=== PATIENT | female | born 1970 | race Hispanic/Latino ===

== ENCOUNTER 2025-05-19 14:43 | Emergency (ER) | payer BC ==
[~2025-05-19] VITALS: Ht 172.7 cm; Wt 84.8 kg
[2025-05-19] MEDS: BACLOFEN 10 MG TABLET PO ONE (16:33)
[2025-05-19] MEDS: HYDROcodone/APAP 5/325 1 TAB TABLET PO ONE (16:34)
--- NOTE | 2025-05-19 16:44 | ERN ---
General Chief Complaint: Neck Pain Stated Complaint: BILATERAL NECK PAIN Time Seen by MD: 14:30 Time Seen by Midlevel: 17:00 History of Present Illness Initial Comments A 54-year-old male presents to the emergency department with a chief complaint of severe neck pain and inability to rotate the head laterally. The pain is described as excruciating, throbbing, and localized to the cervical region, with onset three days prior to presentation and marked worsening over the past 24 hours. He reports associated dysphagia, with difficulty swallowing, but denies fever, chills, dizziness, or constitutional symptoms. The pain is aggravated by any attempt at movement, including lying supine, and is refractory to positional changes. He denies any history of trauma, recent infection. He does not report gait instability, sensory loss, or urinary symptoms. Timing/Duration: constant Modifying Factors: worsens with movement (Neck pain worsens with any movement) Associated Symptoms: denies symptoms Allergies: Coded Allergies: No Known Allergies (Unverified Allergy, Unknown, 05/19/25) Past Medical History Past Medical History: Hypertension Past Surgical History: None Constitutional: (-) chills, (-) diaphoresis, (-) fever, (-) malaise, (-) weakness, (-) other documentation EENTM: (+) throat pain Respiratory: (-) cough, (-) orthopnea, (-) short of breath, (-) stridor, (-) wheezing, (-) other documentation Cardiovascular: (-) chest pain, (-) edema, (-) palpitations, (-) syncope, (-) dyspnea on exertion, (-) other documentation Gastrointestinal/Abdominal: (-) nausea, (-) vomiting, (-) diarrhea, (-) abdominal pain, (-) abdominal distention, (-) constipation, (-) rectal bleeding, (-) dark stool/melena, (-) other documentation Musculoskeletal: (+) Neck pain (Severe neck pain with restricted movement in all directions) Skin: (-) laceration, (-) contusion, (-) abrasion, (-) abscess, (-) rash, (-) change in color, (-) change in hair, (-) change in nails, (-) diaphoresis, (-) dryness, (-) other documentation Neuro: (-) altered mental status, (-) headache, (-) syncope, (-) paralysis, (-) numbness, (-) seizure, (-) pre-existing deficit, (-) tremors, (-) weakness, (-) dizziness, (-) slurred speech, (-) vertigo, (-) other documentation Psych: (-) depression, (-) suicidal ideation, (-) anxiety, (-) emotional problems, (-) auditory hallucinations, (-) visual hallucinations Hematologic/Lymphatic: (-) anemia, (-) blood clots, (-) easy bleeding, (-) easy bruising, (-) swollen glands, (-) other documentation Physical Exam General Appearance: (+) moderate distress Orientation: (+) alert, (+) oriented x 3 Head/Face Trauma: No Ear, Nose, Throat: (+) hearing grossly normal, (+) normal ENT inspection Neck: (+) tender (Tenderness that is more pronounced in the anterior pillars of sternocleidomastoid and in the nape of neck), (+) limited range of motion (Restricted range of motion in all directions) Respiratory: (+) chest non-tender, (+) lungs clear Heart: (+) regular, (+) no gallop Vascular: (+) no edema Gastrointestinal: (+) soft, (+) non-tender Results Laboratory and Microbiology Labs Reviewed?: Yes MDM MDM: The patient is a 54-year-old male with a history of hypertension who presents to the emergency department with nontraumatic neck pain onset a week ago. Patient reports he thinks he slept wrong with the causing to have the pain. Reports pain is worse with movement. Denies any numbness, denies any fevers or any associated symptoms. Patient was reassessed. At this time patient reports he feels much better than when he 1st arrived. Reports he has more movement to his neck. On physical exam patient is seen no acute distress, neurologically intact. We will discharged to follow up with PCP. Differential diagnosis: Cervical strain, muscle spasm, musculoskeletal pain. Rationale: Tests considered and ordered secondary to shared decision making include: labs, ECG and radiology Previous outside records reviewed: Old ER visits. Risk of complication and/or morbidity or mortality of patient management: None Medications-Per medication reconciliation Need for hospitalization: Patient does not meet criteria for hospitalization. Need for emergency major/minor surgery: No ED Course Orders Procedure Category Date Status Time Ketorolac PHA 05/19/25 Complete Tromethamine 30mg/Ml 16:30 Methylprednisolone PHA 05/19/25 Complete Succ 125mg (Solu-Medr 16:30 Baclofen (Baclofen) PHA 05/19/25 Complete 16:30 Hydrocodone/Apap PHA 05/19/25 Complete 5/325 (Cavalier 5/325mg) 16:30 Current Medications Medications (Trade) Dose Ordered Sig/Soniya Route PRN Reason Start Time Stop Time Status Last Admin Dose Admin Acetaminophen/ Hydrocodone Bitart (NORco 5/325MG) 1 tab ONCE ONCE PO 05/19/25 16:30 05/19/25 16:31 DC 05/19/25 16:34 Baclofen (Baclofen) 10 mg ONCE ONCE PO 05/19/25 16:30 05/19/25 16:31 DC 05/19/25 16:33 Ketorolac Tromethamine (toRADol) 30 mg ONCE ONCE IVP 05/19/25 16:30 05/19/25 16:31 DC 05/19/25 16:34 Methylprednisolone Sodium Succinate (Solu-medROL 125MG) 120 mg ONCE ONCE IVP 05/19/25 16:30 05/19/25 16:31 DC 05/19/25 16:34 Vital Signs Date Time Temp Pulse Resp B/P (MAP) Pulse Ox O2 Delivery O2 Flow Rate FiO2 05/19/25 15:09 98.1 75 16 145/75 99 Room Air* 0 21 05/19/25 14:45 98.8 78 16 148/79 99 Room Air 0 DX & DISP Disposition: Discharge Departure Impression: Primary Impression: Cervical strain Condition: Stable Scripts Cyclobenzaprine HCl (Flexeril) 10 Mg Tab 10 MG PO TID for muscle sstiffness, #14 TAB 0 Refills Prov: FRANKY BUSBY [employer] AND [employer] 05/19/25 Ibuprofen (Ibuprofen) 600 Mg Tablet 600 MG PO Q6H PRN for PAIN, #15 TAB Prov: FRANKY BUSBY [employer] AND [employer] 05/19/25 Additional Instructions: Please follow up with the primary doctor in 1-2 days. If anything worsens please return to ER. FOLLOW-UP WITH PRIMARY CARE PROVIDER IN 1 TO 2 DAYS. TAKE MEDICATIONS D IRECTED HERE IN THE EMERGENCY ROOM. OKAY TO CONTINUE HOME MEDICATIONS UNLESS OTHERWISE DISCUSSED DURING YOUR VISIT IN THE EMERGENCY ROOM TODAY. RETURN TO YOUR NEAREST EMERGENCY ROOM IF SYMPTOMS WORSEN OR IF THERE IS NO IMPROVEMENT. CALL 911 IF YOU NEED IMMEDIATE ASSISTANCE. TAKE TYLENOL [id number] NEEDED AND IF NO CONTRAINDICATIONS ARE PRESENT. INCREASE ORAL HYDRATION. A WOUND CULTURE OR URINE CULTURE WAS ORDERED HERE IN THE EMERGENCY ROOM DEPARTMENT PLEASE FOLLOW-UP WITH PRIMARY CARE PROVIDER AND ADVISE THEM TO GET REPEAT PORTS FROM OUR FACILITY. IF YOU HAD ANY GALILEO WRAP/SPLINTS THAT WERE APPLIED HERE, PLEASE DO NOT REMOVE THEM UNTIL YOU SEE YOUR PRIMARY CARE OR SPECIALTY. Time of Disposition: 17:58 I have reviewed the case, and I agree with, Diagnosis and Plan JANET MACDONALD MD May 19, 2025 16:44 FRANKY BUSBY May 19, 2025 17:59
[2025-05-19] MEDS ORDERED: IBUP-1492 PO (17:58)
[2025-05-19] MEDS ORDERED: CYCL10TA16 PO (17:58)
[2025-05-19 18:01] VITALS: BP 140/75; PULSE 72; RESP 16; TEMP 98.1; O2SAT 99
== END 2025-05-19 18:07 | disposition home or self-care (01) ==
LOC: EDH 14:43
DX: S16.1XXA Strain of muscle, fascia and tendon at neck level, initial encounter (principal); I10 Essential (primary) hypertension; X58.XXXA Exposure to other specified factors, initial encounter; Y93.89 Activity, other specified; Y92.89 Other specified places as the place of occurrence of the external cause; Y99.8 Other external cause status
CPT/HCPCS: 99284; 96374; 96375; J1885; J2919